=== PATIENT | female | born 1980 | race Caucasian/White ===

== ENCOUNTER → 2017-06-14 | Outpatient (CLI) | payer BC | END | disposition home or self-care (01) | LOC: MAMMO 06-02 09:30 | DX: N61.1 Abscess of the breast and nipple (principal); R92.8 Other abnormal and inconclusive findings on diagnostic imaging of breast ==

== ENCOUNTER → 2017-08-23 | Outpatient (CLI) | payer BC ==
[2017-08-24 22:05] LABS: TESTOSTERONE FREE, (DIRECT) 2.6 pg/mL (0.0-4.2)
== END | disposition home or self-care (01) ==
LOC: LAB 14:28
PROVIDERS: Family Medicine
DX: E74.09 Other glycogen storage disease (principal); F41.1 Generalized anxiety disorder; R53.83 Other fatigue; N64.59 Other signs and symptoms in breast

== ENCOUNTER → 2023-03-02 | Outpatient (CLI) | payer OTHER | END | disposition home or self-care (01) | LOC: MAMMO 13:30 | PROVIDERS: ATTEND Family Medicine | DX: N64.89 Other specified disorders of breast (principal); R92.333 Mammographic heterogeneous density, bilateral breasts; N61.0 Mastitis without abscess ==

== ENCOUNTER → 2023-03-09 | Outpatient (CLI) | payer OTHER ==
[2023-03-09 12:30] LABS: ALKALINE PHOSPHATASE 53 U/L (46-116); BUN 10 mg/dl (9-23); CHLORIDE 109 mmol/L (98-107); POTASSIUM 4.3 mmol/L (3.4-5.1)
[2023-03-09 12:41] LABS: SGPT/ALT < 7 U/L (5-49)
== END | disposition home or self-care (01) ==
LOC: LAB 11:27
PROVIDERS: ATTEND Family Medicine
DX: J43.9 Emphysema, unspecified (principal); F17.200 Nicotine dependence, unspecified, uncomplicated

== ENCOUNTER → 2024-01-05 | Outpatient (CLI) | payer OTHER | END | disposition home or self-care (01) | LOC: MAMMO 07:48 | PROVIDERS: ATTEND Family Medicine | DX: D24.2 Benign neoplasm of left breast (principal) ==

== ENCOUNTER → 2024-02-06 | Outpatient (CLI) | payer OTHER | END | disposition home or self-care (01) | LOC: RAD 14:41 | PROVIDERS: ATTEND Family Medicine | DX: R06.02 Shortness of breath (principal); R05.9 Cough, unspecified ==

== ENCOUNTER → 2024-10-26 | Outpatient (CLI) | payer OTHER | END | disposition home or self-care (01) | LOC: RAD 11:57 | PROVIDERS: ATTEND Family Medicine | DX: S62.397A Other fracture of fifth metacarpal bone, left hand, initial encounter for closed fracture (principal); M77.32 Calcaneal spur, left foot; M25.572 Pain in left ankle and joints of left foot; X58.XXXA Exposure to other specified factors, initial encounter; Y93.89 Activity, other specified; Y92.89 Other specified places as the place of occurrence of the external cause; Y99.8 Other external cause status ==